=== PATIENT | female | born 1985 | race Caucasian/White ===

== ENCOUNTER → 2024-02-13 07:23 | Outpatient (REF) | payer OTHER, SELFPAY | LOC: HWRAD 07:23 | PROVIDERS: ATTENDING PHYSICIAN Nurse Practitioner Family | DX: S76.212A Strain of adductor muscle, fascia and tendon of left thigh, initial encounter (principal) | CPT/HCPCS: 76882 ==

== ENCOUNTER → 2025-03-15 11:43 | Outpatient (REF) | payer SELFPAY | LOC: HWRAD 11:43 | PROVIDERS: ATTENDING PHYSICIAN Internal Medicine Geriatric Medicine | DX: Z00.00 Encounter for general adult medical examination without abnormal findings (principal); Z85.820 Personal history of malignant melanoma of skin | CPT/HCPCS: 75571 ==

== ENCOUNTER → 2025-05-12 10:04 | Outpatient (REF) | payer OTHER, SELFPAY | LOC: WDC 10:04 | PROVIDERS: ATTENDING PHYSICIAN Nurse Practitioner Family | DX: R22.31 Localized swelling, mass and lump, right upper limb (principal) | CPT/HCPCS: 76642; 77062; 77066 ==